=== PATIENT | male | born 1970 | race Caucasian/White ===

== ENCOUNTER 2017-01-10 10:04 | Emergency (ER) | payer BC ==
[2017-01-10 10:19] VITALS: BP 132/69
[2017-01-10] MEDS ORDERED: Ketorolac INJ* 60 MG/2 ML VIAL IM ONE (11:05)
--- NOTE | 2017-01-10 11:35 | RAD ---
Indication: Neck pain and stiffness. Comparison: August 21, 2009 radiographs. Technique: AP, open-mouth odontoid, lateral, and oblique views cervical spine. Report: Normal alignment. Negative for fracture. Mild vertebral endplate osteophytosis present from C3-C4 through C6-C7 without significant disc space narrowing. Multilevel mild uncinate process spurring and minimal facet joint osteoarthritis. The oblique views are negative for osseous foraminal stenosis. Unremarkable prevertebral soft tissue contours. IMPRESSION: Mild degenerative spondylosis and posterior element osteoarthritis without significant change compared with the 2009 exam.
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
== END 2017-01-10 12:16 | disposition home or self-care (01) ==
LOC: UCEAST 10:04
DX: M43.6 Torticollis (principal); Z88.1 Allergy status to other antibiotic agents; Z94.7 Corneal transplant status; F17.210 Nicotine dependence, cigarettes, uncomplicated
CPT/HCPCS: 72050; 96372; 99212; G0463; J1885

== ENCOUNTER 2019-09-27 16:44 | Emergency (ER) | payer BC ==
[2019-09-27 16:54] VITALS: BP 133/85
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
== END 2019-09-27 17:05 | disposition home or self-care (01) ==
LOC: UCEAST 16:44
DX: J32.9 Chronic sinusitis, unspecified (principal); R09.82 Postnasal drip; R09.89 Other specified symptoms and signs involving the circulatory and respiratory systems; F17.210 Nicotine dependence, cigarettes, uncomplicated; J02.9 Acute pharyngitis, unspecified; H92.09 Otalgia, unspecified ear; Z88.0 Allergy status to penicillin
CPT/HCPCS: 99212; G0463

== ENCOUNTER 2019-12-23 09:26 | Emergency (ER) | payer BC ==
[2019-12-23 09:38] VITALS: BP 114/74
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
== END 2019-12-23 10:48 | disposition home or self-care (01) ==
LOC: UCEAST 09:26
DX: M54.5 Low back pain (principal); F17.210 Nicotine dependence, cigarettes, uncomplicated; Z88.0 Allergy status to penicillin
CPT/HCPCS: 72110; 99211; G0463